=== PATIENT | female | born 1970 | race Caucasian/White ===

== ENCOUNTER 2017-09-20 16:24 | Outpatient (CLI) | payer OTHER ==
--- NOTE | 2017-09-20 17:18 | RAD ---
PA AND LATERAL VIEWS CHEST: 09/20/17 HISTORY: Cough. FINDINGS: The cardiomediastinum is normal. The lungs are expanded and clear. The bony thorax is normal. IMPRESSION: Normal exam. POS: [facility]
== END 2017-09-20 16:25 | disposition home or self-care (01) ==
LOC: SCSRAD 16:24
PROVIDERS: ATTEND Family Medicine
DX: R05 Cough (principal)
CPT/HCPCS: 71046

== ENCOUNTER 2018-01-18 12:12 | Outpatient (CLI) | payer OTHER | END 2018-01-18 12:13 | disposition home or self-care (01) | LOC: BICMAMMO 12:12 | DX: Z12.31 Encounter for screening mammogram for malignant neoplasm of breast (principal); Z80.3 Family history of malignant neoplasm of breast | CPT/HCPCS: 77063; 77067 ==

== ENCOUNTER 2019-04-22 19:36 | Emergency (ER) | payer OTHER ==
--- NOTE | 2019-04-22 21:01 | RAD ---
CHEST TWO VIEWS: History: Cough. Difficulty breathing. Comparison: 09-20-17 FINDINGS: Heart size is within normal limits. The lungs are clear. No confluent pneumonia, overt edema, or pleu ral effusions. IMPRESSION: No acute intrathoracic disease. Stable from 09-20-17. POS: [facility]
[2019-04-22] MEDS ORDERED: Albuterol Sulfate 1.25 MG/3 ML NEB ONE (21:23)
[2019-04-22] MEDS ORDERED: Albuterol Sulfate 2.5 mg/3 ml Neb ONE (21:26)
== END 2019-04-22 21:51 | disposition home or self-care (01) ==
LOC: ERS 19:36
DX: J20.9 Acute bronchitis, unspecified (principal); E78.00 Pure hypercholesterolemia, unspecified; Z79.51 Long term (current) use of inhaled steroids
CPT/HCPCS: 71046; J7611

== ENCOUNTER 2019-04-23 14:52 | Outpatient (CLI) | payer OTHER ==
--- NOTE | 2019-04-23 16:20 | CT ---
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 Comparison: No prior CT imaging available. Reference is made to chest radiography 04-22-19. FINDINGS: There is no lobar consolidation, effusion, or pneumothorax. The tracheal bronchial air column is mello nt. The regional soft tissues including vasculature and lymph nodes are limited in assessment by nonc ontrast imaging. Calcification of the superior mediastinum is present, related to vascular calcificat ion of the proximal aspect of the right subclavian artery. There is also mild calcification of the ao rta. There are no acute osseous abnormalities. IMPRESSION: 1. No focal consolidation or pleural effusion. 2. Incidental note of atherosclerotic vascular disease. POS: [facility]
== END 2019-04-23 14:53 | disposition home or self-care (01) ==
LOC: SCSCT 14:52
PROVIDERS: ATTEND Family Medicine
DX: J38.5 Laryngeal spasm (principal)
CPT/HCPCS: 71250

== ENCOUNTER 2021-09-01 09:22 | Outpatient (CLI) | payer BC | END 2021-09-01 09:23 | disposition home or self-care (01) | LOC: BICMAMMO 09:22 | PROVIDERS: ATTEND Family Medicine | DX: Z12.31 Encounter for screening mammogram for malignant neoplasm of breast (principal); Z80.3 Family history of malignant neoplasm of breast; Z98.82 Breast implant status | CPT/HCPCS: 77063; 77067 ==

== ENCOUNTER 2022-09-01 09:00 | Outpatient (CLI) | payer BC | END 2022-09-01 09:01 | disposition home or self-care (01) | LOC: BICMAMMO 09:00 | PROVIDERS: ATTEND Family Medicine | DX: Z12.31 Encounter for screening mammogram for malignant neoplasm of breast (principal); R92.8 Other abnormal and inconclusive findings on diagnostic imaging of breast; Z80.3 Family history of malignant neoplasm of breast; Z98.890 Other specified postprocedural states | CPT/HCPCS: 77063; 77067 ==